=== PATIENT | male | born 1955 ===

== ENCOUNTER 2022-02-08 05:42 | Day surgery (SDC) | payer OTHER ==
[~2022-02-08] VITALS: Ht 167.6 cm; Wt 95.7 kg
[~2022-02-08 05:42] MED LIST: COZAAR100 MG PO; ECOTRIN81 MG PO; FOLIC A PO; LIPITOR40 MG PO; MAGNESIUM400 M1 PO; PLAVIX75 MG PO; VITAMIN C PO
== END 2022-02-08 11:45 | disposition home or self-care (01) ==
LOC: CIR.AMB 05:42
PROVIDERS: ATTEND Colon & Rectal Surgery
DX: K64.8 Other hemorrhoids (principal); K60.2 Anal fissure, unspecified; K62.4 Stenosis of anus and rectum; I10 Essential (primary) hypertension; F17.210 Nicotine dependence, cigarettes, uncomplicated; Z20.822 Contact with and (suspected) exposure to COVID-19